=== PATIENT | male | born 1950 | race Caucasian/White ===

== ENCOUNTER 2020-05-21 09:01 | Outpatient (CLI) | payer MEDICARE, SELFPAY | END 2020-05-21 09:02 | disposition home or self-care (01) | LOC: ANHAUDIO 09:03 | PROVIDERS: PCP Nurse Practitioner Family; Visit Provider Otolaryngology | DX: H90.3 Sensorineural hearing loss, bilateral (principal) | CPT/HCPCS: 92557; 92567 ==